=== PATIENT | female | born 1980 | race Caucasian/White ===

== ENCOUNTER 2017-10-09 17:28 | Inpatient (IN) | payer OTHER ==
[2017-10-09] MEDS ORDERED: POTASSIUM CHLORIDE 2 MEQ/ML 60 MEQ, LIDOCAINE HCL 1% MDV 2 ML in SODIUM CHLORIDE 0.9% 1... IV ONE (18:21)
[2017-10-09] MEDS ORDERED: ALBUTEROL NEB SOL 2.5MG/3ML 1 VIAL SOL INH PRN (18:47)
[2017-10-09] MEDS ORDERED: TEMAZEPAM 7.5 MG CAP PO PRN (18:51)
[2017-10-09] MEDS ORDERED: ONDANSETRON HCL 4 MG/2 ML SOL IV PRN ×2 (18:52→20:05)
[2017-10-09] MEDS ORDERED: CEFTRIAXONE 1 GM PDS 1 GM in SODIUM CHLORIDE 0.9% 50 ML 50 ML IV ONE (19:05)
[2017-10-09] MEDS ORDERED: POTASSIUM CHLORIDE 2 MEQ/ML SOL IV ONE (19:10)
[2017-10-09] MEDS ORDERED: LIDOCAINE HCL 1% MPF 30 SOL ONE (19:12)
[2017-10-09] MEDS ORDERED: CEFTRIAXONE 1 GM PDS ONE (19:28)
[2017-10-09] MEDS: RANITIDINE HYDROCHLORIDE 25 MG/ML SOL IV SCH (19:30)
[2017-10-09] MEDS: ACETAMINOPHEN 500 MG 500 MG TAB PO PRN (19:30)
[2017-10-09] MEDS: POTASSIUM CHLORIDE 10 MEQ TER PO SCH ×2 (19:30→21:43)
[2017-10-09] MEDS ORDERED: LORAZEPAM 2 MG/ML SOL IV ONE (19:37)
[2017-10-09] MEDS ORDERED: METOPROLOL TARTRATE 5 MG/5 ML SOL IV ONE ×2 (19:43→19:46)
[2017-10-09 20:01] LABS: HEMATOCRIT 31 % (35-47); HEMOGLOBIN 11.1 gm/dl (12.0-15.5); MEAN CORPUSCULAR HEMOGLOBIN 33.4 pg (27.0-32.0); MEAN CORPUSCULAR HGB CONC 35.3 gm/dl (32.0-36.0); MEAN CORPUSCULAR VOLUME 95 fL (81-99)
[2017-10-09] MEDS ORDERED: SODIUM CHLORIDE 0.9% 500 ML 500 ML IV ONE ×2 (20:01→22:04)
[2017-10-09 20:10] LABS: MAGNESIUM 0.9 mg/dl (1.8-2.4)
[2017-10-09] MEDS ORDERED: MAGNESIUM SULFATE 5 GM/10 ML SOL IV ONE (20:13)
[2017-10-09] MEDS ORDERED: SODIUM CHLORIDE 0.9% 1000ML 1,000 ML IV SCH (20:15)
[2017-10-09 20:24] LABS: BAND NEUTROPHILS % (MANUAL) 2 %; BASOPHILS % (MANUAL) 0 % (0-3); EOSINOPHILS % (MANUAL) 0 % (0-9); LYMPHOCYTES % (MANUAL) 38 % (10-50); MONOCYTES % (MANUAL) 8 % (0-12); NEUTROPHILS % (MANUAL) 52 % (37-80); NORMAL RBCS PRESENT
[2017-10-09] MEDS: THIAMINE 100 MG/ML 100 MG/ML SOL IM SCH (20:50)
[2017-10-09] MEDS: SALMETEROL IH SCH (21:29)
[2017-10-09] MEDS: FLUTICASONE IH SCH (21:29)
[2017-10-09] MEDS: LORAZEPAM 2 MG/ML SOL IV PRN ×2 (21:43→22:35)
[2017-10-09] MEDS: SODIUM CHLORIDE 0.9% FLUSH 10 ML SOL IV PRN (21:44)
[2017-10-10] MEDS: ACETAMINOPHEN 500 MG 500 MG TAB PO PRN (00:25)
[2017-10-10] MEDS: RANITIDINE HYDROCHLORIDE 25 MG/ML SOL IV SCH ×4 (01:28→19:00)
[2017-10-10] MEDS ORDERED: MAGNESIUM SULFATE 5 GM/10 ML SOL IV ONE (01:29)
[2017-10-10] MEDS: LORAZEPAM 2 MG/ML SOL IV PRN ×3 (01:33→22:23)
[2017-10-10] MEDS: SODIUM CHLORIDE 0.9% FLUSH 10 ML SOL IV PRN ×5 (01:43→22:23)
[2017-10-10] MEDS: SODIUM CHLORIDE 0.9% 1000ML 1,000 ML IV SCH ×5 (02:05→22:43)
[2017-10-10] MEDS ORDERED: POTASSIUM CHLORIDE 2 MEQ/ML 60 MEQ, LIDOCAINE HCL 1% MDV 2 ML in SODIUM CHLORIDE 0.9% 1... IV ONE (03:42)
[2017-10-10] MEDS ORDERED: CLONIDINE 0.1 MG TAB PO ONE (03:53)
[2017-10-10] MEDS: APAP/HYDROCODONE 325/5 TAB PO PRN ×3 (04:03→20:35)
[2017-10-10] MEDS ORDERED: POTASSIUM CHLORIDE 2 MEQ/ML SOL IV ONE (04:05)
[2017-10-10] MEDS ORDERED: LIDOCAINE HCL 1% MPF 30 SOL ONE (04:08)
[2017-10-10] MEDS: POTASSIUM CHLORIDE 10 MEQ TER PO SCH ×2 (04:15→06:37)
[2017-10-10 07:20] LABS: BASOPHILS % (AUTO) 2 % (0-3); EOSINOPHILS % (AUTO) 2 % (0-9); HEMATOCRIT 26 % (35-47); HEMOGLOBIN 9.6 gm/dl (12.0-15.5); LYMPHOCYTES % (AUTO) 29.5 % (10-50); MEAN CORPUSCULAR HEMOGLOBIN 34.5 pg (27.0-32.0); MEAN CORPUSCULAR HGB CONC 36.3 gm/dl (32.0-36.0); MEAN CORPUSCULAR VOLUME 95 fL (81-99); MONOCYTES % (AUTO) 5.3 % (0-12); NEUTROPHILS % (AUTO) 61.1 % (37-80)
[2017-10-10 07:28] LABS: BILIRUBIN,TOTAL 0.8 mg/dl (0.2-1.0); CARBON DIOXIDE 25.2 mEq/L (21-32); CREATININE 0.76 mg/dl (0.60-1.00); MAGNESIUM 1.8 mg/dl (1.8-2.4); POTASSIUM 3.1 mMol/L (3.5-5.1); TOTAL PROTEIN 4.3 gm/dl (6.4-8.2)
[2017-10-10] MEDS ORDERED: SODIUM CHLORIDE 0.9% 500 ML 500 ML IV ONE (07:34)
[2017-10-10] MEDS ORDERED: CALCIUM GLUCONATE 100 MG/ML SOL IV ONE (07:38)
[2017-10-10 07:44] LABS: AMPHETAMINES NEGATIVE (NEGATIVE); BARBITUATES NEGATIVE (NEGATIVE); BENZODIAZEPINES POSITIVE (NEGATIVE); CANNABINOL(THC) NEGATIVE (NEGATIVE); COCAINE(COC) NEGATIVE (NEGATIVE); METHADONE NEGATIVE (NEGATIVE); METHAMPHETAMINES NEGATIVE (NEGATIVE); OPIATES(OP13) NEGATIVE (NEGATIVE); OXYCODONE(OXY) NEGATIVE (NEGATIVE); PROPOXYPHENE(PPX) NEGATIVE (NEGATIVE); TRICYCLIC ANTIDEPRESSANTS NEGATIVE (NEGATIVE)
[2017-10-10 07:58] LABS: POIKILOCYTOSIS SLIGHT AMT; STOMATOCYTES PRESENT
[2017-10-10] MEDS: FLUTICASONE IH SCH (08:38)
[2017-10-10] MEDS: SALMETEROL IH SCH (08:38)
[2017-10-10] MEDS ORDERED: PANTOPRAZOLE SODIUM 40 MG/10 ML PDS IV SCH (09:00)
[2017-10-10] MEDS: THIAMINE 100 MG/ML 100 MG/ML SOL IM SCH (09:33)
[2017-10-10] MEDS: MULTIVITAMIN2 1 EA TAB PO SCH (09:33)
[2017-10-10] MEDS ORDERED: CALCIUM GLUCONATE 10% 100 MG/ML SOL IV ONE (10:43)
[2017-10-10] MEDS: FOLIC ACID 1 MG TAB PO SCH (10:57)
[2017-10-10] MEDS ORDERED: CALCIUM GLUCONATE 10% 1,000 MG in SODIUM CHLORIDE 0.9% 100 ML 100 ML IV ONE (11:15)
[2017-10-10 12:52] LABS: ALBUMIN 2.2 gm/dl (3.4-5.0); BILIRUBIN,TOTAL 0.7 mg/dl (0.2-1.0); CARBON DIOXIDE 22.7 mEq/L (21-32); CREATININE 0.82 mg/dl (0.60-1.00); MAGNESIUM 1.6 mg/dl (1.8-2.4); POTASSIUM 3.4 mMol/L (3.5-5.1); TOTAL PROTEIN 4.7 gm/dl (6.4-8.2)
[2017-10-10 12:54] LABS: CALCIUM 6.2 mg/dl (8.5-10.1)
[2017-10-10] MEDS ORDERED: POTASSIUM CHLORIDE 10 MEQ TER PO SCH (13:30)
[2017-10-10] MEDS: CIPROFLOXACIN HCL 500 MG TAB PO SCH ×2 (16:57→20:35)
[2017-10-10] MEDS: FLUTICASONE/SALMETEROL 250/50 1 PUFF DSK INH SCH (20:34)
[2017-10-11] MEDS: RANITIDINE HYDROCHLORIDE 25 MG/ML SOL IV SCH ×4 (00:22→19:32)
[2017-10-11] MEDS: LORAZEPAM 2 MG/ML SOL IV PRN (00:23)
[2017-10-11] MEDS: SODIUM CHLORIDE 0.9% FLUSH 10 ML SOL IV PRN (00:23)
[2017-10-11] MEDS ORDERED: LORAZEPAM 0.5 MG TAB PO PRN ×2 (00:54→08:29)
[2017-10-11] MEDS: SODIUM CHLORIDE 0.9% 1000ML 1,000 ML IV SCH (04:21)
[2017-10-11 07:33] LABS: BASOPHILS % (AUTO) 3 % (0-3); EOSINOPHILS % (AUTO) 3 % (0-9); HEMATOCRIT 26 % (35-47); HEMOGLOBIN 9.1 gm/dl (12.0-15.5); MEAN CORPUSCULAR HEMOGLOBIN 33.6 pg (27.0-32.0); MEAN CORPUSCULAR HGB CONC 34.3 gm/dl (32.0-36.0); MEAN CORPUSCULAR VOLUME 98 fL (81-99); MONOCYTES % (AUTO) 8.2 % (0-12); NEUTROPHILS % (AUTO) 61.2 % (37-80)
[2017-10-11 07:35] LABS: ALBUMIN 1.9 gm/dl (3.4-5.0); BILIRUBIN,TOTAL 0.6 mg/dl (0.2-1.0); CARBON DIOXIDE 20.1 mEq/L (21-32); CREATININE 0.65 mg/dl (0.60-1.00); TOTAL PROTEIN 4.2 gm/dl (6.4-8.2)
[2017-10-11 07:41] LABS: CALCIUM 5.5 mg/dl (8.5-10.1)
[2017-10-11] MEDS: ESOMEPRAZOLE SODIUM 40 MG VIAL IV SCH (08:49)
[2017-10-11] MEDS: MULTIVITAMIN2 1 EA TAB PO SCH (08:49)
[2017-10-11] MEDS: CIPROFLOXACIN HCL 500 MG TAB PO SCH ×2 (08:49→20:47)
[2017-10-11] MEDS: FOLIC ACID 1 MG TAB PO SCH (08:54)
[2017-10-11] MEDS: THIAMINE 100 MG/ML 100 MG/ML SOL IM SCH (08:54)
[2017-10-11] MEDS: FLUTICASONE/SALMETEROL 250/50 1 PUFF DSK INH SCH ×2 (08:55→20:48)
[2017-10-11] MEDS ORDERED: GABAPENTIN 100 MG CAP PO SCH (09:00)
[2017-10-11] MEDS ORDERED: CALCIUM GLUCONATE 10% 100 MG/ML SOL IV ONE ×3 (09:33→20:16)
[2017-10-11] MEDS: POTASSIUM CHLORIDE 10 MEQ TER PO SCH ×3 (09:53→15:20)
[2017-10-11] MEDS: CALCIUM GLUCONATE 100 MG/ML SOL IV SCH ×3 (09:55→20:48)
[2017-10-11] MEDS: ACETAMINOPHEN 500 MG 500 MG TAB PO PRN ×3 (11:02→19:50)
[2017-10-11] MEDS ORDERED: POTASSIUM CHLORIDE 2 MEQ/ML SOL IV ONE (11:06)
[2017-10-11] MEDS: SODIUM CHLORIDE 0.45% 1000 ML 1,000 ML with POTASSIUM CHLORIDE 2 MEQ/ML 20 MEQ IV SCH (11:10)
[2017-10-11] MEDS ORDERED: SODIUM CHLORIDE 0.9% 100 ML 100 ML IV ONE (20:16)
[2017-10-11] MEDS ORDERED: GABAPENTIN 300 MG CAP PO SCH (21:00)
[2017-10-11 22:56] LABS: *FERRITIN 327 ng/ml (10-291); *IRON BINDING CAPACITY 148 mcg/dl (228-410); *IRON SATURATION % 58 % (15-46)
[2017-10-12] MEDS: ACETAMINOPHEN 500 MG 500 MG TAB PO PRN ×4 (01:00→22:44)
[2017-10-12] MEDS: RANITIDINE HYDROCHLORIDE 25 MG/ML SOL IV SCH ×3 (01:01→20:46)
[2017-10-12] MEDS ORDERED: POTASSIUM CHLORIDE 2 MEQ/ML SOL IV ONE (02:09)
[2017-10-12] MEDS: SODIUM CHLORIDE 0.45% 1000 ML 1,000 ML with POTASSIUM CHLORIDE 2 MEQ/ML 20 MEQ IV SCH (02:55)
[2017-10-12 07:09] LABS: BASOPHILS % (AUTO) 2 % (0-3); EOSINOPHILS % (AUTO) 3 % (0-9); HEMATOCRIT 28 % (35-47); HEMOGLOBIN 9.9 gm/dl (12.0-15.5); LYMPHOCYTES % (AUTO) 29.4 % (10-50); MEAN CORPUSCULAR HEMOGLOBIN 34.5 pg (27.0-32.0); MEAN CORPUSCULAR HGB CONC 34.9 gm/dl (32.0-36.0); MONOCYTES % (AUTO) 4.3 % (0-12); NEUTROPHILS % (AUTO) 61.5 % (37-80)
[2017-10-12 07:17] LABS: BILIRUBIN,TOTAL 0.7 mg/dl (0.2-1.0); CARBON DIOXIDE 21.4 mEq/L (21-32); CREATININE 0.61 mg/dl (0.60-1.00); MAGNESIUM 1.2 mg/dl (1.8-2.4); POTASSIUM 3.2 mMol/L (3.5-5.1); TOTAL PROTEIN 4.5 gm/dl (6.4-8.2)
[2017-10-12 07:21] LABS: MEAN CORPUSCULAR VOLUME 99 fL (81-99)
[2017-10-12 07:33] LABS: CALCIUM 5.9 mg/dl (8.5-10.1)
[2017-10-12 07:34] LABS: NORMAL RBCS PRESENT
[2017-10-12] MEDS ORDERED: MAGNESIUM SULFATE 5 GM/10 ML SOL IV ONE (08:04)
[2017-10-12] MEDS ORDERED: GABAPENTIN 300 MG CAP PO SCH (09:15)
[2017-10-12] MEDS: APAP/HYDROCODONE 325/5 TAB PO PRN ×3 (09:28→19:47)
[2017-10-12] MEDS ORDERED: SODIUM CHLORIDE 0.9% 100 ML 100 ML IV ONE ×3 (09:59→19:54)
[2017-10-12] MEDS ORDERED: CALCIUM GLUCONATE 10% 100 MG/ML SOL IV ONE ×3 (09:59→19:52)
[2017-10-12] MEDS: POTASSIUM CHLORIDE 10 MEQ TER PO SCH ×3 (10:04→15:06)
[2017-10-12] MEDS: FLUTICASONE/SALMETEROL 250/50 1 PUFF DSK INH SCH ×2 (10:05→20:19)
[2017-10-12] MEDS: CIPROFLOXACIN HCL 500 MG TAB PO SCH ×2 (10:05→20:21)
[2017-10-12] MEDS: FOLIC ACID 1 MG TAB PO SCH (10:06)
[2017-10-12] MEDS: MULTIVITAMIN2 1 EA TAB PO SCH (10:06)
[2017-10-12] MEDS: CALCIUM GLUCONATE 10% 1,000 MG in SODIUM CHLORIDE 0.9% 100 ML 100 ML IV SCH ×3 (10:20→20:20)
[2017-10-12] MEDS ORDERED: SODIUM CHLORIDE 0.9% IV ONE (11:09)
[2017-10-12] MEDS ORDERED: MAGNESIUM SULFATE IV ONE (11:09)
[2017-10-12] MEDS: GABAPENTIN 300 MG CAP PO SCH ×2 (11:31→20:22)
[2017-10-12] MEDS ORDERED: SODIUM CHLORIDE 0.9% 250 ML 250 ML IV ONE (11:35)
[2017-10-12] MEDS ORDERED: MAGNESIUM SULFATE 5 GM/10 ML SOL ONE (11:35)
[2017-10-12] MEDS: THIAMINE 100 MG TAB PO SCH (11:58)
[2017-10-12] MEDS: ESOMEPRAZOLE SODIUM 40 MG VIAL IV SCH (13:04)
[2017-10-12] MEDS: THIAMINE 100 MG/ML 100 MG/ML SOL IM SCH (13:04)
[2017-10-12] MEDS: PANTOPRAZOLE SODIUM 40 MG ECT PO SCH (13:27)
[2017-10-12] MEDS: TRIAMCINOLONE 0.1% CREAM CRE TOP SCH ×2 (13:28→20:21)
[2017-10-12 18:19] LABS: MAGNESIUM 2.2 mg/dl (1.8-2.4); POTASSIUM 4.6 mMol/L (3.5-5.1)
[2017-10-12] MEDS: ZOLPIDEM TARTRATE 5 MG TAB PO PRN (20:20)
[2017-10-12] MEDS: FAMOTIDINE 20 MG TAB PO SCH (20:22)
[2017-10-12 23:54] LABS: *FOLATE 4.6 ng/ml (2.6-20.0)
[2017-10-13] MEDS: APAP/HYDROCODONE 325/5 TAB PO PRN ×4 (02:00→21:53)
[2017-10-13] MEDS: ACETAMINOPHEN 500 MG 500 MG TAB PO PRN (03:20)
[2017-10-13] MEDS ORDERED: GABAPENTIN 300 MG CAP PO ONE (06:10)
[2017-10-13] MEDS: PANTOPRAZOLE SODIUM 40 MG ECT PO SCH (06:28)
[2017-10-13] MEDS: IBUPROFEN 600 MG TAB PO PRN (06:28)
[2017-10-13 07:22] LABS: CARBON DIOXIDE 20.6 mEq/L (21-32); CREATININE 0.65 mg/dl (0.60-1.00); MAGNESIUM 1.5 mg/dl (1.8-2.4); POTASSIUM 4.1 mMol/L (3.5-5.1)
[2017-10-13 07:23] LABS: BASOPHILS % (AUTO) 2 % (0-3); EOSINOPHILS % (AUTO) 2 % (0-9); HEMATOCRIT 30 % (35-47); HEMOGLOBIN 9.8 gm/dl (12.0-15.5); LYMPHOCYTES % (AUTO) 15.9 % (10-50); MEAN CORPUSCULAR HEMOGLOBIN 33.6 pg (27.0-32.0); MEAN CORPUSCULAR HGB CONC 33.2 gm/dl (32.0-36.0); MONOCYTES % (AUTO) 4.4 % (0-12); NEUTROPHILS % (AUTO) 75.4 % (37-80)
[2017-10-13 07:27] LABS: CALCIUM 6.3 mg/dl (8.5-10.1)
[2017-10-13 07:31] LABS: MEAN CORPUSCULAR VOLUME 101 fL (81-99)
[2017-10-13] MEDS ORDERED: MAGNESIUM SULFATE 5 GM/10 ML SOL IV ONE (08:50)
[2017-10-13] MEDS: MULTIVITAMIN2 1 EA TAB PO SCH (09:11)
[2017-10-13] MEDS: CIPROFLOXACIN HCL 500 MG TAB PO SCH ×2 (09:11→20:42)
[2017-10-13] MEDS: FOLIC ACID 1 MG TAB PO SCH (09:11)
[2017-10-13] MEDS: FLUTICASONE/SALMETEROL 250/50 1 PUFF DSK INH SCH ×2 (09:12→20:41)
[2017-10-13] MEDS: THIAMINE 100 MG TAB PO SCH (09:13)
[2017-10-13] MEDS: TRIAMCINOLONE 0.1% CREAM CRE TOP SCH ×2 (09:13→20:41)
[2017-10-13] MEDS: FAMOTIDINE 20 MG TAB PO SCH ×2 (09:16→20:42)
[2017-10-13] MEDS: SODIUM CHLORIDE 0.9% FLUSH 10 ML SOL IV PRN ×2 (09:17→12:07)
[2017-10-13] MEDS: GABAPENTIN 300 MG CAP PO SCH ×2 (09:18→20:42)
[2017-10-13] MEDS: CALCIUM CARBONATE 500 MG TAB PO SCH ×2 (09:18→20:42)
[2017-10-13] MEDS: CHOLECALCIFEROL 1,000 IU TAB PO SCH (09:19)
[2017-10-13] MEDS: POTASSIUM CHLORIDE 10 MEQ TER PO SCH ×2 (11:15→20:41)
[2017-10-13] MEDS: FUROSEMIDE 20 MG TAB PO SCH ×2 (11:15→15:13)
[2017-10-13] MEDS: HYDROMORPHONE HCL 2 MG/ML SOL IV STA ×4 (14:45→17:13)
[2017-10-13] MEDS ORDERED: DIPHENHYDRAMINE 25 MG CAP PO PRN (18:12)
[2017-10-13] MEDS: LIDOCAINE 4% CREAM TP SCH (20:41)
[2017-10-13] MEDS: ZOLPIDEM TARTRATE 5 MG TAB PO PRN (21:54)
[2017-10-14] MEDS: IBUPROFEN 600 MG TAB PO PRN (03:10)
[2017-10-14] MEDS: APAP/HYDROCODONE 325/5 TAB PO PRN ×3 (03:54→17:59)
[2017-10-14] MEDS: ACETAMINOPHEN 500 MG 500 MG TAB PO PRN ×3 (06:24→20:54)
[2017-10-14] MEDS: PANTOPRAZOLE SODIUM 40 MG ECT PO SCH (06:24)
[2017-10-14 07:24] LABS: BASOPHILS % (AUTO) 2 % (0-3); EOSINOPHILS % (AUTO) 3 % (0-9); HEMATOCRIT 29 % (35-47); HEMOGLOBIN 9.9 gm/dl (12.0-15.5); LYMPHOCYTES % (AUTO) 18.7 % (10-50); MEAN CORPUSCULAR HEMOGLOBIN 34.9 pg (27.0-32.0); MEAN CORPUSCULAR HGB CONC 34.6 gm/dl (32.0-36.0); MONOCYTES % (AUTO) 5.1 % (0-12); NEUTROPHILS % (AUTO) 71.6 % (37-80)
[2017-10-14 07:38] LABS: ALBUMIN 2.1 gm/dl (3.4-5.0); BILIRUBIN,TOTAL 0.7 mg/dl (0.2-1.0); CARBON DIOXIDE 26.8 mEq/L (21-32); CREATININE 0.61 mg/dl (0.60-1.00); MAGNESIUM 1.5 mg/dl (1.8-2.4); POTASSIUM 4.4 mMol/L (3.5-5.1); TOTAL PROTEIN 4.8 gm/dl (6.4-8.2)
[2017-10-14 07:39] LABS: MEAN CORPUSCULAR VOLUME 101 fL (81-99)
[2017-10-14 07:41] LABS: CALCIUM 6.4 mg/dl (8.5-10.1)
[2017-10-14] MEDS ORDERED: ACETAMINOPHEN 325 MG PO PRN (08:32)
[2017-10-14 08:44] LABS: ANISOCYTOSIS SLIGHT AMT; POIKILOCYTOSIS SLIGHT AMT; STOMATOCYTES PRESENT
[2017-10-14] MEDS: SODIUM CHLORIDE 0.9% FLUSH 10 ML SOL IV PRN ×3 (09:47→21:38)
[2017-10-14] MEDS: MULTIVITAMIN2 1 EA TAB PO SCH (09:48)
[2017-10-14] MEDS: FOLIC ACID 1 MG TAB PO SCH (09:48)
[2017-10-14] MEDS: CIPROFLOXACIN HCL 500 MG TAB PO SCH ×2 (09:48→20:55)
[2017-10-14] MEDS: FLUTICASONE/SALMETEROL 250/50 1 PUFF DSK INH SCH ×2 (09:49→20:54)
[2017-10-14] MEDS: THIAMINE 100 MG TAB PO SCH (09:49)
[2017-10-14] MEDS: TRIAMCINOLONE 0.1% CREAM CRE TOP SCH ×2 (09:49→20:55)
[2017-10-14] MEDS: CALCIUM CARBONATE 500 MG TAB PO SCH ×2 (09:50→20:57)
[2017-10-14] MEDS: FAMOTIDINE 20 MG TAB PO SCH ×2 (09:50→20:57)
[2017-10-14] MEDS: POTASSIUM CHLORIDE 10 MEQ TER PO SCH ×2 (09:50→20:55)
[2017-10-14] MEDS: CHOLECALCIFEROL 1,000 IU TAB PO SCH (09:51)
[2017-10-14] MEDS: MAGNESIUM OXIDE 400 MG TAB PO SCH ×3 (09:52→20:58)
[2017-10-14] MEDS: FUROSEMIDE 20mg SOL IV SCH ×2 (09:52→13:57)
[2017-10-14] MEDS: GABAPENTIN 300 MG CAP PO SCH ×3 (09:52→20:56)
[2017-10-14] MEDS: FUROSEMIDE 20 MG TAB PO SCH (10:06)
[2017-10-14] MEDS: LIDOCAINE 4% CREAM TP SCH (20:55)
[2017-10-14] MEDS: ZOLPIDEM TARTRATE 5 MG TAB PO PRN (22:00)
[2017-10-15] MEDS: APAP/HYDROCODONE 325/5 TAB PO PRN ×4 (00:24→20:45)
[2017-10-15] MEDS: PANTOPRAZOLE SODIUM 40 MG ECT PO SCH (06:24)
[2017-10-15 07:37] LABS: CARBON DIOXIDE 28.2 mEq/L (21-32); CHOL/HDL RATIO 2.3 (2.2-4.5); CREATININE 0.61 mg/dl (0.60-1.00); LDL CHOLESTEROL,CALCULATED 55.6 mg/dl (50-130); MAGNESIUM 1.4 mg/dl (1.8-2.4); POTASSIUM 4.3 mMol/L (3.5-5.1)
[2017-10-15] MEDS ORDERED: FUROSEMIDE 40 MG SOL ONE (08:48)
[2017-10-15] MEDS: FOLIC ACID 1 MG TAB PO SCH (08:51)
[2017-10-15] MEDS: FLUTICASONE/SALMETEROL 250/50 1 PUFF DSK INH SCH ×2 (08:52→20:45)
[2017-10-15] MEDS: CIPROFLOXACIN HCL 500 MG TAB PO SCH (08:52)
[2017-10-15] MEDS: THIAMINE 100 MG TAB PO SCH (08:52)
[2017-10-15] MEDS: MULTIVITAMIN2 1 EA TAB PO SCH (08:52)
[2017-10-15] MEDS: TRIAMCINOLONE 0.1% CREAM CRE TOP SCH ×2 (08:52→20:45)
[2017-10-15] MEDS: FAMOTIDINE 20 MG TAB PO SCH ×2 (08:53→20:46)
[2017-10-15] MEDS: CALCIUM CARBONATE 500 MG TAB PO SCH ×2 (08:53→20:46)
[2017-10-15] MEDS: POTASSIUM CHLORIDE 10 MEQ TER PO SCH ×2 (08:53→20:45)
[2017-10-15] MEDS: CHOLECALCIFEROL 1,000 IU TAB PO SCH (08:53)
[2017-10-15] MEDS: FUROSEMIDE 20mg SOL IV SCH ×2 (08:54→14:21)
[2017-10-15] MEDS: GABAPENTIN 300 MG CAP PO SCH ×3 (08:54→20:50)
[2017-10-15] MEDS: MAGNESIUM OXIDE 400 MG TAB PO SCH ×3 (08:54→20:46)
[2017-10-15] MEDS: SODIUM CHLORIDE 0.9% FLUSH 10 ML SOL IV PRN ×3 (08:57→20:56)
[2017-10-15] MEDS: ACETAMINOPHEN 500 MG 500 MG TAB PO PRN (08:58)
[2017-10-15 14:09] LABS: *PROTEIN URINE 24 HR 194 mg/24hr (<300); *PROTEIN URINE RAW 6 mg/dl
[2017-10-15] MEDS: LIDOCAINE 4% CREAM TP SCH (20:44)
[2017-10-15] MEDS: ZOLPIDEM TARTRATE 5 MG TAB PO PRN (22:33)
[2017-10-16] MEDS: APAP/HYDROCODONE 325/5 TAB PO PRN ×3 (05:09→18:36)
[2017-10-16] MEDS: PANTOPRAZOLE SODIUM 40 MG ECT PO SCH (06:12)
[2017-10-16 07:31] LABS: ALBUMIN 2.1 gm/dl (3.4-5.0); BILIRUBIN,TOTAL 0.6 mg/dl (0.2-1.0); CALCIUM 7.4 mg/dl (8.5-10.1); CARBON DIOXIDE 24.8 mEq/L (21-32); CREATININE 0.59 mg/dl (0.60-1.00); POTASSIUM 4.4 mMol/L (3.5-5.1)
[2017-10-16] MEDS ORDERED: HYDROMORPHONE HCL 2 MG/ML SOL IV PRN (08:39)
[2017-10-16] MEDS: ACETAMINOPHEN 500 MG 500 MG TAB PO PRN (09:14)
[2017-10-16] MEDS: FLUTICASONE/SALMETEROL 250/50 1 PUFF DSK INH SCH ×2 (09:15→20:28)
[2017-10-16] MEDS ORDERED: DIPHENHYDRAMINE HCL 12.5 MG/5 ML LIQUID PO PRN (09:15)
[2017-10-16] MEDS: MAGNESIUM OXIDE 400 MG TAB PO SCH ×3 (09:16→20:29)
[2017-10-16] MEDS: POTASSIUM CHLORIDE 10 MEQ TER PO SCH ×2 (09:16→20:29)
[2017-10-16] MEDS: TRIAMCINOLONE 0.1% CREAM CRE TOP SCH ×2 (09:16→20:29)
[2017-10-16] MEDS: FOLIC ACID 1 MG TAB PO SCH (09:16)
[2017-10-16] MEDS: GABAPENTIN 300 MG CAP PO SCH ×3 (09:17→20:30)
[2017-10-16] MEDS: CALCIUM CARBONATE 500 MG TAB PO SCH ×2 (09:17→20:30)
[2017-10-16] MEDS: MULTIVITAMIN2 1 EA TAB PO SCH (09:17)
[2017-10-16] MEDS: FAMOTIDINE 20 MG TAB PO SCH ×2 (09:17→20:30)
[2017-10-16] MEDS: THIAMINE 100 MG TAB PO SCH (09:17)
[2017-10-16] MEDS: CHOLECALCIFEROL 1,000 IU TAB PO SCH (09:18)
[2017-10-16] MEDS: SODIUM CHLORIDE 0.9% FLUSH 10 ML SOL IV PRN (09:31)
[2017-10-16] MEDS: FUROSEMIDE 20mg SOL IV SCH ×2 (09:31→14:53)
[2017-10-16] MEDS: DULOXETINE HCL 30 MG CAPSULE.DR PO SCH (10:29)
[2017-10-16] MEDS ORDERED: TRAZODONE HYDROCHLORIDE 50 MG TAB PO PRN (17:36)
[2017-10-16] MEDS: LIDOCAINE 4% CREAM TP SCH (20:28)
[2017-10-17] MEDS: APAP/HYDROCODONE 325/5 TAB PO PRN ×2 (00:36→07:37)
[2017-10-17] MEDS: PANTOPRAZOLE SODIUM 40 MG ECT PO SCH ×2 (06:19→09:08)
[2017-10-17] MEDS ORDERED: ONDANSETRON 4 MG ODT BU PRN (06:42)
[2017-10-17 07:36] VITALS: BP 112/81; PULSE 88; RESP 10; TEMP 98.6; O2SAT 95
[2017-10-17] MEDS ORDERED: FUROSEMIDE 20 MG TAB PO SCH (09:00)
[2017-10-17] MEDS: FLUTICASONE/SALMETEROL 250/50 1 PUFF DSK INH SCH (09:09)
[2017-10-17] MEDS: MAGNESIUM OXIDE 400 MG TAB PO SCH ×2 (09:10→13:17)
[2017-10-17] MEDS: POTASSIUM CHLORIDE 10 MEQ TER PO SCH (09:10)
[2017-10-17] MEDS: TRIAMCINOLONE 0.1% CREAM CRE TOP SCH (09:10)
[2017-10-17] MEDS: DULOXETINE HCL 30 MG CAPSULE.DR PO SCH (09:10)
[2017-10-17] MEDS: FOLIC ACID 1 MG TAB PO SCH (09:10)
[2017-10-17] MEDS: CHOLECALCIFEROL 1,000 IU TAB PO SCH (09:11)
[2017-10-17] MEDS: MULTIVITAMIN2 1 EA TAB PO SCH (09:11)
[2017-10-17] MEDS: CALCIUM CARBONATE 500 MG TAB PO SCH (09:11)
[2017-10-17] MEDS: THIAMINE 100 MG TAB PO SCH (09:11)
[2017-10-17] MEDS: GABAPENTIN 300 MG CAP PO SCH ×2 (09:14→13:17)
[2017-10-17] MEDS: FAMOTIDINE 20 MG TAB PO SCH (09:14)
== END 2017-10-17 13:55 | disposition home or self-care (01) | DRG 641 ==
LOC: UNDOADMIN 17:58 → ACUTE CARE 17:58
PROVIDERS: ADMIT Family Medicine; ATTEND Family Medicine
PROC: F01H1ZZ Integumentary Integrity Assessment of Integumentary System - Whole Body (ICD-10-PCS; principal; 2017-10-11)
PROC: F01L0FZ Muscle Performance Assessment of Musculoskeletal System - Lower Back / Lower Extremity using Assistive, Adaptive, Supportive or Protective Equipment (ICD-10-PCS; 2017-10-11)
DX: E87.6 Hypokalemia (principal); E83.42 Hypomagnesemia; N39.0 Urinary tract infection, site not specified; R11.2 Nausea with vomiting, unspecified; R00.0 Tachycardia, unspecified; R41.0 Disorientation, unspecified; E83.51 Hypocalcemia; R60.9 Edema, unspecified; R19.7 Diarrhea, unspecified; M79.605 Pain in left leg; M79.604 Pain in right leg; G62.9 Polyneuropathy, unspecified; M21.371 Foot drop, right foot; R26.81 Unsteadiness on feet; Z72.89 Other problems related to lifestyle
CPT/HCPCS: 36415; 70450; 71275; 72148; 80048; 80053; 80061; 80305; 82272; 83735; 83880; 84100; 84132; 84484; 85007; 85018; 85025; 85027; 85651; 93005; 93012; 93306; 99070; J0610; J0696; J1170; J1940; J2060; J2405; J2780; J3475; J3480; Q9967; A6446; A9270-GY; J2001; J3411; J3490

== ENCOUNTER 2017-11-22 10:20 | Inpatient (IN) | payer OTHER ==
[2017-11-22] MEDS ORDERED: POTASSIUM CHLORIDE 2 MEQ/ML 60 MEQ, LIDOCAINE HCL 1% MDV 2 ML in SODIUM CHLORIDE 0.9% 1... IV ONE (10:34)
[2017-11-22] MEDS ORDERED: POTASSIUM CHLORIDE 10 MEQ TER PO SCH (10:45)
[2017-11-22] MEDS ORDERED: POTASSIUM CHLORIDE 2 MEQ/ML SOL IV ONE (11:34)
[2017-11-22] MEDS ORDERED: LIDOCAINE HCL 1% MPF 30 SOL ONE (11:34)
[2017-11-22] MEDS ORDERED: ONDANSETRON HCL 4 MG/2 ML SOL ONE (12:31)
[2017-11-22] MEDS: ONDANSETRON HCL 4 MG/2 ML SOL IV PRN ×3 (12:36→20:21)
[2017-11-22] MEDS ORDERED: GABAPENTIN 300 MG CAP PO SCH (12:45)
[2017-11-22] MEDS ORDERED: SODIUM CHLORIDE 0.9% 1000ML 1,000 ML IV ONE (13:18)
[2017-11-22] MEDS ORDERED: ONDANSETRON HCL 4 MG/2 ML SOL IV PRN ×3 (13:30→23:30)
[2017-11-22] MEDS: APAP/HYDROCODONE 325/5 TAB PO PRN ×3 (13:49→22:10)
[2017-11-22 15:45] LABS: APPEARANCE,URINE Slightly Cloudy; BILIRUBIN,URINE 1+ (NEGATIVE); COLOR,URINE Amber; GLUCOSE, URINE (UA) NEGATIVE (NEGATIVE); KETONES,URINE TRACE (NEGATIVE); LEUKOCYTE ESTERASE ,URINE TRACE (NEGATIVE); NITRATE,URINE POSITIVE (NEGATIVE); OCCULT BLOOD,URINE NEGATIVE (NEG-TRACE)
[2017-11-22 15:56] LABS: ICTOTEST,URINE POSITIVE (NEGATIVE); RBC,URINE 0-2 (0-3AV/HPF)
[2017-11-22 15:57] LABS: BACTERIA 4+ (< 1+); CRYSTALS 0-2 CA OXALATE (0-3 AVE/HPF)
[2017-11-22] MEDS ORDERED: SODIUM CHLORIDE 0.9% 500 ML 500 ML IV ONE (16:43)
[2017-11-22] MEDS ORDERED: CIPROFLOXACIN HCL 500 MG TAB PO SCH (16:45)
[2017-11-22] MEDS ORDERED: LORAZEPAM 2 MG/ML 10ML MDV 2 MG/ML VIAL IV ONE (17:00)
[2017-11-22] MEDS ORDERED: LORAZEPAM 2 MG/ML SOL ONE (17:38)
[2017-11-22 18:20] LABS: BLOOD UREA NITROGEN 3 mg/dl (7-18); CALCIUM 6.9 mg/dl (8.5-10.1); CARBON DIOXIDE 20.4 mEq/L (21-32); CHLORIDE 108 mMol/L (98-107); GLOM FILT RATE 112 mL/min (>60); GLUCOSE 78 mg/dl (74-106); MAGNESIUM 1.2 mg/dl (1.8-2.4); POTASSIUM 3.9 mMol/L (3.5-5.1); SODIUM 142 mMol/L (136-145); TROP I < 0.017 ng/ml (0.000-0.056)
[2017-11-22 18:38] LABS: ALBUMIN 2.8 gm/dl (3.4-5.0); ALKALINE PHOSPHATASE 71 IU/L (46-116); ALT 29 IU/L (14-63); AST 94 IU/L (15-37); BILIRUBIN,TOTAL 1.3 mg/dl (0.2-1.0); TOTAL PROTEIN 5.6 gm/dl (6.4-8.2)
[2017-11-22] MEDS ORDERED: MAGNESIUM SULFATE 1 GM/2 ML 2 GM in SODIUM CHLORIDE 0.9% 100 ML 100 ML IV ONE (18:50)
[2017-11-22] MEDS ORDERED: ALUMINUM/MAGNESIUM 30 ML SUS PO PRN ×2 (19:00→23:30)
[2017-11-22] MEDS ORDERED: ALBUTEROL NEB SOL 2.5MG/3ML 1 VIAL SOL INH PRN (19:03)
[2017-11-22] MEDS ORDERED: MAGNESIUM SULFATE 5 GM/10 ML SOL ONE (20:09)
[2017-11-22] MEDS: CALCIUM CARBONATE 500 MG TAB PO SCH (20:19)
[2017-11-22] MEDS: MULTIVITAMIN2 1 EA TAB PO SCH (20:23)
[2017-11-22] MEDS: FOLIC ACID 1 MG TAB PO SCH (20:23)
[2017-11-22] MEDS: THIAMINE 100 MG TAB PO SCH (20:23)
[2017-11-22] MEDS: GABAPENTIN 300 MG CAP PO SCH (20:27)
[2017-11-22] MEDS: SODIUM CHLORIDE 0.9% FLUSH 10 ML SOL IV SCH (20:34)
[2017-11-22] MEDS ORDERED: Non-Formulary Medication MISC (Fluticasone/Salmeterol 250/50 1 PUFF) IH SCH (21:00)
[2017-11-22] MEDS ORDERED: RANITIDINE HCL 150 MG TAB PO SCH (21:00)
[2017-11-22] MEDS ORDERED: LORAZEPAM 2 MG/ML SOL IV PRN (23:30)
[2017-11-23] MEDS: SODIUM CHLORIDE 0.9% FLUSH 10 ML SOL IV SCH ×7 (00:10→22:49)
[2017-11-23] MEDS: LORAZEPAM 0.5 MG TAB PO PRN ×3 (02:53→13:45)
[2017-11-23] MEDS: FAMOTIDINE 20 MG TAB PO SCH (06:04)
[2017-11-23 07:49] LABS: ALBUMIN 2.4 gm/dl (3.4-5.0); BILIRUBIN,TOTAL 1.6 mg/dl (0.2-1.0); CARBON DIOXIDE 24.8 mEq/L (21-32); CREATININE 0.51 mg/dl (0.60-1.00); MAGNESIUM 1.8 mg/dl (1.8-2.4); POTASSIUM 3.4 mMol/L (3.5-5.1)
[2017-11-23 07:58] LABS: BASOPHILS % (AUTO) 2 % (0-3); EOSINOPHILS % (AUTO) 3 % (0-9); HEMATOCRIT 32 % (35-47); HEMOGLOBIN 10.7 gm/dl (12.0-15.5); LYMPHOCYTES % (AUTO) 31.4 % (10-50); MEAN CORPUSCULAR HEMOGLOBIN 32.4 pg (27.0-32.0); MEAN CORPUSCULAR VOLUME 95 fL (81-99); MONOCYTES % (AUTO) 5.3 % (0-12); NEUTROPHILS % (AUTO) 58.4 % (37-80)
[2017-11-23] MEDS ORDERED: POTASSIUM CHLORIDE 10 MEQ CAPSULE PO SCH (09:00)
[2017-11-23] MEDS ORDERED: MULTIVITAMIN2 1 EA TAB PO SCH ×2 (09:00)
[2017-11-23] MEDS ORDERED: OMEPRAZOLE 40 MG ECC PO SCH (09:00)
[2017-11-23] MEDS ORDERED: FOLIC ACID 1 MG TAB PO SCH (09:00)
[2017-11-23] MEDS ORDERED: THIAMINE 100 MG TAB PO SCH (09:00)
[2017-11-23] MEDS ORDERED: CEFTRIAXONE 1 GM PDS 1 GM in SODIUM CHLORIDE 0.9% 50 ML 50 ML IV ONE (09:00)
[2017-11-23] MEDS ORDERED: CEFTRIAXONE 1 GM PDS ONE (09:07)
[2017-11-23] MEDS ORDERED: SODIUM CHLORIDE 0.9% 50 ML 50 ML IV ONE (09:08)
[2017-11-23] MEDS: ONDANSETRON 4 MG ODT BU PRN (09:19)
[2017-11-23] MEDS: CALCIUM CARBONATE 500 MG TAB PO SCH ×2 (09:22→20:52)
[2017-11-23] MEDS: GABAPENTIN 300 MG CAP PO SCH ×3 (09:22→20:53)
[2017-11-23] MEDS: FOLIC ACID 1 MG TAB PO SCH (09:22)
[2017-11-23] MEDS: APAP/HYDROCODONE 325/5 TAB PO PRN ×2 (09:22→20:59)
[2017-11-23] MEDS: THIAMINE 100 MG TAB PO SCH (09:22)
[2017-11-23] MEDS: MULTIVITAMIN2 1 EA TAB PO SCH (09:22)
[2017-11-23] MEDS: SODIUM CHLORIDE 0.9% 1000ML 1,000 ML IV SCH (09:27)
[2017-11-23] MEDS: ETHINYL ESTRADIOL PO SCH (10:28)
[2017-11-23] MEDS: NORETHINDRONE PO SCH (10:28)
[2017-11-23] MEDS: [UNRECOGNIZED DRUG - OTHER] PO SCH (10:28)
[2017-11-23] MEDS: FLUTICASONE/SALMETEROL 250/50 1 PUFF DSK INH SCH ×2 (10:29→21:11)
[2017-11-23] MEDS: [UNRECOGNIZED DRUG - OTHER] PO SCH ×4 (10:29→21:11)
[2017-11-23] MEDS: MAGNESIUM OXIDE 400 MG TAB PO SCH ×2 (10:37→20:52)
[2017-11-23] MEDS: PANTOPRAZOLE SODIUM 40 MG ECT PO SCH (10:40)
[2017-11-23 17:29] LABS: CALCIUM 7.1 mg/dl (8.5-10.1); CARBON DIOXIDE 25.1 mEq/L (21-32); CREATININE 0.72 mg/dl (0.60-1.00); MAGNESIUM 1.6 mg/dl (1.8-2.4); POTASSIUM 3.1 mMol/L (3.5-5.1)
[2017-11-23] MEDS ORDERED: POTASSIUM CHLORIDE 10 MEQ TER PO SCH (18:30)
[2017-11-23] MEDS ORDERED: POTASSIUM CHLORIDE 2 MEQ/ML SOL IV SCH (18:30)
[2017-11-24] MEDS: SODIUM CHLORIDE 0.9% 1000ML 1,000 ML IV SCH (00:57)
[2017-11-24] MEDS: APAP/HYDROCODONE 325/5 TAB PO PRN ×2 (01:05→06:04)
[2017-11-24] MEDS: FAMOTIDINE 20 MG TAB PO SCH (06:29)
[2017-11-24 07:28] LABS: CALCIUM 6.8 mg/dl (8.5-10.1); CARBON DIOXIDE 23.2 mEq/L (21-32); CREATININE 0.54 mg/dl (0.60-1.00); MAGNESIUM 1.6 mg/dl (1.8-2.4); POTASSIUM 3.8 mMol/L (3.5-5.1)
[2017-11-24] MEDS: SODIUM CHLORIDE 0.9% FLUSH 10 ML SOL IV SCH ×3 (07:34→23:30)
[2017-11-24] MEDS: ONDANSETRON 4 MG ODT BU PRN (08:39)
[2017-11-24] MEDS: THIAMINE 100 MG TAB PO SCH (09:40)
[2017-11-24] MEDS: PANTOPRAZOLE SODIUM 40 MG ECT PO SCH (09:40)
[2017-11-24] MEDS: [UNRECOGNIZED DRUG - OTHER] PO SCH ×4 (09:41→21:34)
[2017-11-24] MEDS: CALCIUM CARBONATE 500 MG TAB PO SCH ×2 (09:41→21:37)
[2017-11-24] MEDS: ETHINYL ESTRADIOL PO SCH (09:42)
[2017-11-24] MEDS: FOLIC ACID 1 MG TAB PO SCH (09:42)
[2017-11-24] MEDS: NORETHINDRONE PO SCH (09:42)
[2017-11-24] MEDS: MAGNESIUM OXIDE 400 MG TAB PO SCH ×2 (09:42→21:35)
[2017-11-24] MEDS: [UNRECOGNIZED DRUG - OTHER] PO SCH (09:42)
[2017-11-24] MEDS: MULTIVITAMIN2 1 EA TAB PO SCH (09:43)
[2017-11-24] MEDS: FLUTICASONE/SALMETEROL 250/50 1 PUFF DSK INH SCH ×2 (09:44→21:33)
[2017-11-24] MEDS: GABAPENTIN 300 MG CAP PO SCH ×4 (10:29→21:33)
[2017-11-24] MEDS: POTASSIUM CHLORIDE 10 MEQ TER PO SCH ×2 (10:52→21:34)
[2017-11-24] MEDS: CIPROFLOXACIN HCL 500 MG TAB PO SCH ×2 (10:52→21:32)
[2017-11-24] MEDS: TIZANIDINE 4 MG PO PRN ×3 (10:53→23:19)
[2017-11-24] MEDS ORDERED: LIDOCAINE 5% PATCH 1 PATCH TDM TOP SCH (17:00)
[2017-11-24 19:02] VITALS: O2SAT 99
[2017-11-24] MEDS: NAPROXEN 500 MG TAB PO PRN (19:03)
[2017-11-24] MEDS ORDERED: AMITRIPTYLINE 25 MG TAB PO SCH (21:00)
[2017-11-24] MEDS ORDERED: TRAZODONE HYDROCHLORIDE 50 MG TAB PO PRN (22:09)
[2017-11-25] MEDS: TIZANIDINE 4 MG PO PRN ×2 (04:14→12:44)
[2017-11-25] MEDS: FAMOTIDINE 20 MG TAB PO SCH (06:41)
[2017-11-25 07:59] LABS: ALBUMIN 2.4 gm/dl (3.4-5.0); BILIRUBIN,TOTAL 0.5 mg/dl (0.2-1.0); CALCIUM 7.7 mg/dl (8.5-10.1); CARBON DIOXIDE 27.6 mEq/L (21-32); CREATININE 0.62 mg/dl (0.60-1.00); MAGNESIUM 1.8 mg/dl (1.8-2.4); POTASSIUM 4.2 mMol/L (3.5-5.1)
[2017-11-25 08:04] LABS: HEMATOCRIT 29 % (35-47); HEMOGLOBIN 10.2 gm/dl (12.0-15.5); MEAN CORPUSCULAR HGB CONC 34.8 gm/dl (32.0-36.0); MEAN CORPUSCULAR VOLUME 98 fL (81-99)
[2017-11-25 08:38] LABS: BAND NEUTROPHILS % (MANUAL) 0 %; BASOPHILS % (MANUAL) 0 % (0-3); EOSINOPHILS % (MANUAL) 2 % (0-9); LYMPHOCYTES % (MANUAL) 34 % (10-50); MONOCYTES % (MANUAL) 7 % (0-12); NEUTROPHILS % (MANUAL) 57 % (37-80); NORMAL RBCS NORMAL RBCS
[2017-11-25 08:41] VITALS: RESP 18
[2017-11-25] MEDS: SODIUM CHLORIDE 0.9% FLUSH 10 ML SOL IV SCH (08:42)
[2017-11-25] MEDS: THIAMINE 100 MG TAB PO SCH (08:43)
[2017-11-25] MEDS: CALCIUM CARBONATE 500 MG TAB PO SCH (08:44)
[2017-11-25] MEDS: FOLIC ACID 1 MG TAB PO SCH (08:45)
[2017-11-25] MEDS: MULTIVITAMIN2 1 EA TAB PO SCH (08:46)
[2017-11-25] MEDS: [UNRECOGNIZED DRUG - OTHER] PO SCH (08:46)
[2017-11-25] MEDS: NORETHINDRONE PO SCH (08:46)
[2017-11-25] MEDS: FLUTICASONE/SALMETEROL 250/50 1 PUFF DSK INH SCH (08:46)
[2017-11-25] MEDS: ETHINYL ESTRADIOL PO SCH (08:46)
[2017-11-25] MEDS: GABAPENTIN 300 MG CAP PO SCH ×2 (08:47→14:11)
[2017-11-25] MEDS: PANTOPRAZOLE SODIUM 40 MG ECT PO SCH (08:47)
[2017-11-25] MEDS: POTASSIUM CHLORIDE 10 MEQ TER PO SCH (08:48)
[2017-11-25] MEDS: CIPROFLOXACIN HCL 500 MG TAB PO SCH (08:48)
[2017-11-25] MEDS: [UNRECOGNIZED DRUG - OTHER] PO SCH ×2 (08:49→12:44)
[2017-11-25] MEDS ORDERED: LIDOCAINE 5% PATCH 1 PATCH TDM TOP SCH (09:00)
[2017-11-25] MEDS: MAGNESIUM OXIDE 400 MG TAB PO SCH (09:00)
[2017-11-25] MEDS: NAPROXEN 500 MG TAB PO PRN (09:00)
[2017-11-25 09:20] VITALS: BP 144/99; PULSE 75; TEMP 98.1
== END 2017-11-25 15:40 | disposition home or self-care (01) | DRG 641 ==
LOC: INFUSION 10:20 → ACUTE CARE 18:49
PROVIDERS: ADMIT Family Medicine; ATTEND Family Medicine
PROC: F01ZBZZ Bed Mobility Assessment (ICD-10-PCS; principal; 2017-11-23)
PROC: F01ZCZZ Transfer Assessment (ICD-10-PCS; 2017-11-23)
DX: E87.6 Hypokalemia (principal); N39.0 Urinary tract infection, site not specified; E46 Unspecified protein-calorie malnutrition; R45.1 Restlessness and agitation; M21.371 Foot drop, right foot; E83.51 Hypocalcemia; E83.42 Hypomagnesemia; R00.0 Tachycardia, unspecified; Z72.89 Other problems related to lifestyle; G62.9 Polyneuropathy, unspecified; M54.5 Low back pain
CPT/HCPCS: 36415; 80048; 80053; 81001; 83735; 84100; 84484; 85007; 85025; 85027; 87077; 87088; 87186; 93005; 93012; 93306; 96365; 96366; 99070; J0696; J2060; J2405; J3475; J3480; J7613; A6232; A9270-GY; J2001

== ENCOUNTER 2018-01-23 09:21 | Day surgery (SDC) | payer OTHER ==
[2018-01-23 10:03] VITALS: O2SAT 99
[2018-01-23] MEDS ORDERED: DIAZEPAM 5 MG TAB ONE (10:17)
[2018-01-23] MEDS ORDERED: BUPIVACAINE HCL 0.5% MPF 10 ML SOL ONE (10:48)
[2018-01-23] MEDS: DEXAMETHASONE SOD PHOS PF 10 MG/ML SOL IJ ONE ×2 (10:52→11:01)
[2018-01-23 11:22] VITALS: BP 109/78; PULSE 87; RESP 16; TEMP 98.4
== END 2018-01-23 11:28 | disposition home or self-care (01) | DRG 552 ==
LOC: SURG 09:21
PROVIDERS: ATTEND Nurse Anesthetist, Certified Registered
DX: M51.17 Intervertebral disc disorders with radiculopathy, lumbosacral region (principal)
CPT/HCPCS: A9270-GY; J1100

== ENCOUNTER 2018-01-26 18:00 | Emergency (ER) | payer OTHER ==
[2018-01-26 18:04] VITALS: BP 124/85; PULSE 122; RESP 18; TEMP 98.2; O2SAT 94
[2018-01-26 18:35] LABS: BASOPHILS % (AUTO) 3 % (0-3); EOSINOPHILS % (AUTO) 1 % (0-9); HEMATOCRIT 36 % (35-47); HEMOGLOBIN 11.5 gm/dl (12.0-15.5); LYMPHOCYTES % (AUTO) 36.1 % (10-50); MEAN CORPUSCULAR HGB CONC 32.3 gm/dl (32.0-36.0); MONOCYTES % (AUTO) 13.9 % (0-12); NEUTROPHILS % (AUTO) 45.9 % (37-80)
[2018-01-26 18:37] LABS: MEAN CORPUSCULAR VOLUME 99 fL (81-99)
[2018-01-26] MEDS ORDERED: SOLUMEDROL 125 MG/2 ML 125 MG/2 ML PDS IM ONE (18:44)
[2018-01-26] MEDS ORDERED: KETOROLAC TROMETHAMINE 30 MG/ML SOL IM ONE (18:44)
[2018-01-26] MEDS ORDERED: KETOROLAC TROMETHAMINE 30 MG/ML SOL ONE (18:45)
[2018-01-26] MEDS ORDERED: SOLUMEDROL 125 MG/2 ML 125 MG/2 ML PDS ONE (18:46)
[2018-01-26 18:48] LABS: ALBUMIN 2.9 gm/dl (3.4-5.0); BILIRUBIN,TOTAL 0.4 mg/dl (0.2-1.0); CALCIUM 7.4 mg/dl (8.5-10.1); CARBON DIOXIDE 30.3 mEq/L (21-32); CREATININE 0.65 mg/dl (0.60-1.00); POTASSIUM 3.7 mMol/L (3.5-5.1); TOTAL PROTEIN 6.2 gm/dl (6.4-8.2)
[2018-01-26 18:50] LABS: ALCOHOL 0.295 gm/dl (0.000-0.08)
== END 2018-01-26 19:27 | disposition home or self-care (01) | DRG 93 ==
LOC: ED 18:00
DX: G89.29 Other chronic pain (principal); M54.42 Lumbago with sciatica, left side; F10.10 Alcohol abuse, uncomplicated; Y90.1 Blood alcohol level of 20-39 mg/100 ml
CPT/HCPCS: 36415; 80053; 80307; 85025; 96372; 99283; J1885; J2930

== ENCOUNTER 2018-06-04 15:24 | Emergency (ER) | payer SELFPAY ==
[2018-06-04] MEDS ORDERED: SODIUM CHLORIDE 0.9% FLUSH 10 ML SOL IV PRN (15:35)
[2018-06-04] MEDS ORDERED: ONDANSETRON HCL 4 MG/2 ML SOL IV ONE (15:35)
[2018-06-04] MEDS ORDERED: SODIUM CHLORIDE 0.9% 1000ML 1,000 ML IV SCH (15:50)
[2018-06-04 16:04] LABS: BASOPHILS % (AUTO) 1 % (0-3); EOSINOPHILS % (AUTO) 1 % (0-9); HEMATOCRIT 44 % (35-47); HEMOGLOBIN 14.3 gm/dl (12.0-15.5); LYMPHOCYTES % (AUTO) 33.1 % (10-50); MEAN CORPUSCULAR HGB CONC 32.6 gm/dl (32.0-36.0); MEAN CORPUSCULAR VOLUME 95 fL (81-99); NEUTROPHILS % (AUTO) 59.7 % (37-80)
[2018-06-04] MEDS ORDERED: ONDANSETRON HCL 4 MG/2 ML SOL ONE (16:14)
[2018-06-04 16:31] VITALS: RESP 18
[2018-06-04 16:43] LABS: APPEARANCE,URINE Clear; BILIRUBIN,URINE NEGATIVE (NEGATIVE); COLOR,URINE Yellow; GLUCOSE, URINE (UA) NEGATIVE (NEGATIVE); KETONES,URINE TRACE (NEGATIVE); LEUKOCYTE ESTERASE ,URINE NEGATIVE (NEGATIVE); NITRATE,URINE NEGATIVE (NEGATIVE); OCCULT BLOOD,URINE NEGATIVE (NEG-TRACE); UROBILINOGEN,URINE 0.2 (0.2-1.0 EU)
[2018-06-04 16:49] LABS: INR 1.01 (0.86-1.12)
[2018-06-04 17:06] VITALS: BP 106/73; PULSE 73; TEMP 98.1; O2SAT 97
[2018-06-04 17:10] LABS: ALBUMIN 3.4 gm/dl (3.4-5.0); BILIRUBIN,DIRECT 0.1 mg/dl (0.0-0.2); BILIRUBIN,TOTAL 0.2 mg/dl (0.2-1.0); CALCIUM 7.7 mg/dl (8.5-10.1); CARBON DIOXIDE 23.8 mEq/L (21-32); CREATININE 0.67 mg/dl (0.60-1.00); MAGNESIUM 1.8 mg/dl (1.8-2.4); POTASSIUM 3.8 mMol/L (3.5-5.1); THYROID STIMULATING HORMONE 1.442 uIU/ml (0.358-3.740); TOTAL PROTEIN 6.6 gm/dl (6.4-8.2)
[2018-06-04 17:17] LABS: ALCOHOL 0.317 gm/dl (0.000-0.08)
[2018-06-04 17:30] LABS: AMPHETAMINES NEGATIVE (NEGATIVE); BARBITUATES NEGATIVE (NEGATIVE); BENZODIAZEPINES POSITIVE (NEGATIVE); CANNABINOL(THC) NEGATIVE (NEGATIVE); COCAINE(COC) NEGATIVE (NEGATIVE); METHADONE NEGATIVE (NEGATIVE); METHAMPHETAMINES NEGATIVE (NEGATIVE); OPIATES(OPI) NEGATIVE (NEGATIVE); OXYCODONE(OXY) NEGATIVE (NEGATIVE); PROPOXYPHENE(PPX) NEGATIVE (NEGATIVE); TRICYCLIC ANTIDEPRESSANTS NEGATIVE (NEGATIVE)
[2018-06-04 17:37] LABS: BACTERIA TRACE (< 1+); CRYSTALS 1-4 CALCIUM OXALATE (0-3 AVE/HPF); EPITHELIAL CELLS 0-2 (SQUAMOUS); RBC,URINE 0-1 (0-3AV/HPF)
== END 2018-06-04 17:00 | disposition left against medical advice (07) | DRG 897 ==
LOC: ED 15:24
DX: F10.229 Alcohol dependence with intoxication, unspecified (principal); Y90.8 Blood alcohol level of 240 mg/100 ml or more; F41.9 Anxiety disorder, unspecified; S00.81XA Abrasion of other part of head, initial encounter; W19.XXXA Unspecified fall, initial encounter; Z53.21 Procedure and treatment not carried out due to patient leaving prior to being seen by health care provider
CPT/HCPCS: 36415; 80048; 80076; 80305; 80307; 81001; 82140; 83735; 84443; 85025; 85610; 96365; 99282; J2405

== ENCOUNTER 2018-06-18 04:54 | Emergency (ER) | payer SELFPAY ==
[2018-06-18 05:04] VITALS: RESP 16; TEMP 96
[2018-06-18] MEDS ORDERED: KETOROLAC TROMETHAMINE 30 MG/ML SOL IM ONE (06:00)
[2018-06-18] MEDS ORDERED: KETOROLAC TROMETHAMINE 30 MG/ML SOL ONE (06:02)
[2018-06-18 06:36] VITALS: BP 103/59; PULSE 91; O2SAT 93
[2018-06-18 06:36] LABS: BASOPHILS % (AUTO) 2 % (0-3); EOSINOPHILS % (AUTO) 2 % (0-9); HEMATOCRIT 38 % (35-47); HEMOGLOBIN 12.8 gm/dl (12.0-15.5); LYMPHOCYTES % (AUTO) 32.4 % (10-50); MEAN CORPUSCULAR HEMOGLOBIN 32.1 pg (27.0-32.0); MEAN CORPUSCULAR HGB CONC 33.4 gm/dl (32.0-36.0); MEAN CORPUSCULAR VOLUME 96 fL (81-99); MONOCYTES % (AUTO) 7.8 % (0-12); NEUTROPHILS % (AUTO) 55.2 % (37-80)
[2018-06-18 06:45] LABS: ALBUMIN 3.6 gm/dl (3.4-5.0); BILIRUBIN,TOTAL 0.4 mg/dl (0.2-1.0); CARBON DIOXIDE 23.6 mEq/L (21-32); CREATININE 0.61 mg/dl (0.60-1.00); POTASSIUM 4.1 mMol/L (3.5-5.1); TOTAL PROTEIN 6.9 gm/dl (6.4-8.2)
[2018-06-18 06:51] LABS: ALCOHOL 0.294 gm/dl (0.000-0.08)
== END 2018-06-18 07:10 | disposition home or self-care (01) | DRG 560 ==
LOC: ED 04:54
DX: S82.831S Other fracture of upper and lower end of right fibula, sequela (principal); F10.29 Alcohol dependence with unspecified alcohol-induced disorder; Z91.19 Patient's noncompliance with other medical treatment and regimen; W00.0XXD Fall on same level due to ice and snow, subsequent encounter; Y90.8 Blood alcohol level of 240 mg/100 ml or more
CPT/HCPCS: 29515; 36415; 73590; 80053; 80307; 85025; 96372; 99284; J1885

== ENCOUNTER 2018-06-28 11:45 | Outpatient (CLI) | payer MEDICAID ==
[2018-06-18 06:36] VITALS: O2SAT 93
== END 2018-06-28 11:46 | disposition home or self-care (01) | DRG 556 ==
LOC: CONVCARE 11:45
PROVIDERS: ATTEND Orthopaedic Surgery
DX: M25.571 Pain in right ankle and joints of right foot (principal); S82.491D Other fracture of shaft of right fibula, subsequent encounter for closed fracture with routine healing
CPT/HCPCS: 73610

== ENCOUNTER 2018-07-12 12:30 | Inpatient (IN) | payer MEDICAID ==
[2018-07-12] MEDS ORDERED: ONDANSETRON 4 MG ODT PO PRN (14:17)
[2018-07-12] MEDS ORDERED: LORAZEPAM 0.5 MG TAB PO PRN (14:18)
[2018-07-12] MEDS ORDERED: ONDANSETRON HCL 4 MG/2 ML SOL IV PRN (14:18)
[2018-07-12] MEDS ORDERED: ALUMINUM/MAGNESIUM 30 ML SUS PO PRN (14:18)
[2018-07-12] MEDS ORDERED: LORAZEPAM 2 MG/ML SOL IV PRN (14:18)
[2018-07-12] MEDS ORDERED: SODIUM CHLORIDE 0.9% FLUSH 10 ML SOL IV SCH (14:30)
[2018-07-12 14:40] LABS: HEMATOCRIT 45 % (35-47); HEMOGLOBIN 14.3 gm/dl (12.0-15.5); MEAN CORPUSCULAR HEMOGLOBIN 31.9 pg (27.0-32.0)
[2018-07-12 14:49] VITALS: BP 109/76; PULSE 130; RESP 16; TEMP 98.2; O2SAT 96
[2018-07-12 15:01] LABS: MEAN CORPUSCULAR VOLUME 100 fL (81-99)
[2018-07-12 15:02] LABS: BAND NEUTROPHILS % (MANUAL) 1 %; EOSINOPHILS % (MANUAL) 1 % (0-9); LYMPHOCYTES % (MANUAL) 33 % (10-50); MONOCYTES % (MANUAL) 9 % (0-12); NEUTROPHILS % (MANUAL) 53 % (37-80)
[2018-07-12 15:03] LABS: BASOPHILS % (MANUAL) 3 % (0-3)
[2018-07-12 15:12] LABS: ALBUMIN 3.8 gm/dl (3.4-5.0); BILIRUBIN,DIRECT 0.1 mg/dl (0.0-0.2); BILIRUBIN,TOTAL 0.2 mg/dl (0.2-1.0); CALCIUM 8.3 mg/dl (8.5-10.1); CREATININE 0.75 mg/dl (0.60-1.00); MAGNESIUM 2.1 mg/dl (1.8-2.4); POTASSIUM 3.4 mMol/L (3.5-5.1); THYROID STIMULATING HORMONE 0.342 uIU/ml (0.358-3.740); TOTAL PROTEIN 7.3 gm/dl (6.4-8.2)
[2018-07-12 15:26] LABS: ALCOHOL 0.404 gm/dl (0.000-0.08)
[2018-07-12] MEDS ORDERED: MAGNESIUM OXIDE 400 MG TAB PO SCH (21:00)
[2018-07-13] MEDS ORDERED: MULTIVITAMIN2 1 EA TAB PO SCH ×2 (09:00)
[2018-07-13] MEDS ORDERED: [UNRECOGNIZED DRUG - OTHER] PO SCH (09:00)
[2018-07-13] MEDS ORDERED: PANTOPRAZOLE SODIUM 40 MG ECT PO PRN (09:00)
[2018-07-13] MEDS ORDERED: ETHINYL ESTRADIOL PO SCH (09:00)
[2018-07-13] MEDS ORDERED: FOLIC ACID 1 MG TAB PO SCH ×2 (09:00)
[2018-07-13] MEDS ORDERED: NORETHINDRONE PO SCH (09:00)
[2018-07-13] MEDS ORDERED: THIAMINE 100 MG TAB PO SCH ×2 (09:00)
== END 2018-07-12 15:05 | disposition left against medical advice (07) | DRG 561 ==
LOC: EDSTATUS 12:30 → CONVCARE 13:27 → ACUTE CARE 13:37 → UNDOADMIN 13:37 → UNDODISIN 15:05
PROVIDERS: ADMIT Family Medicine; ATTEND Family Medicine
DX: S82.831D Other fracture of upper and lower end of right fibula, subsequent encounter for closed fracture with routine healing (principal); Z53.21 Procedure and treatment not carried out due to patient leaving prior to being seen by health care provider
CPT/HCPCS: 36415; 73610; 80048; 80076; 80307; 82140; 83735; 84443; 85007; 85027; A9270-GY

== ENCOUNTER 2018-07-12 15:20 | Inpatient (IN) | payer MEDICAID ==
[2018-07-12] MEDS ORDERED: ONDANSETRON HCL 4 MG/2 ML SOL IV PRN (16:51)
[2018-07-12] MEDS ORDERED: ALUMINUM/MAGNESIUM 30 ML SUS PO PRN (16:52)
[2018-07-12] MEDS ORDERED: LORAZEPAM 2 MG/ML SOL IV PRN ×2 (16:52→18:56)
[2018-07-12] MEDS ORDERED: LORAZEPAM 0.5 MG TAB PO PRN (16:52)
[2018-07-12] MEDS ORDERED: OMEPRAZOLE 40 MG ECC PO PRN (17:40)
[2018-07-12] MEDS ORDERED: ONDANSETRON 4 MG ODT PO PRN (17:40)
[2018-07-12] MEDS ORDERED: ALBUTEROL NEB SOL 2.5MG/3ML 1 VIAL SOL INH PRN (17:40)
[2018-07-12] MEDS: SODIUM CHLORIDE 0.9% FLUSH 10 ML SOL IV SCH (17:47)
[2018-07-12] MEDS: NAPROXEN 500 MG TAB PO PRN (19:01)
[2018-07-12] MEDS ORDERED: FAMOTIDINE 20 MG TAB ONE (19:06)
[2018-07-12] MEDS: MAGNESIUM OXIDE 400 MG TAB PO SCH (20:32)
[2018-07-12] MEDS: CALCIUM CARBONATE 500 MG TAB PO SCH (20:33)
[2018-07-12] MEDS: FAMOTIDINE 20 MG TAB PO SCH (20:34)
[2018-07-12] MEDS: LORAZEPAM 0.5 MG TAB PO PRN (20:45)
[2018-07-12] MEDS ORDERED: MAGNESIUM OXIDE 400 MG TAB PO SCH (21:00)
[2018-07-12] MEDS ORDERED: RANITIDINE HCL 150 MG TAB PO SCH (21:00)
[2018-07-13] MEDS: SODIUM CHLORIDE 0.9% FLUSH 10 ML SOL IV SCH ×3 (00:39→19:00)
[2018-07-13] MEDS: SODIUM CHLORIDE 0.9% 1000ML 1,000 ML IV SCH ×3 (00:39→19:23)
[2018-07-13] MEDS: LORAZEPAM 0.5 MG TAB PO PRN ×7 (01:02→21:45)
[2018-07-13] MEDS: NAPROXEN 500 MG TAB PO PRN ×2 (06:43→09:50)
[2018-07-13 07:03] LABS: AMPHETAMINES NEGATIVE (NEGATIVE); BARBITUATES NEGATIVE (NEGATIVE); BENZODIAZEPINES POSITIVE (NEGATIVE); CANNABINOL(THC) POSITIVE (NEGATIVE); COCAINE(COC) NEGATIVE (NEGATIVE); METHADONE NEGATIVE (NEGATIVE); METHAMPHETAMINES NEGATIVE (NEGATIVE); OPIATES(OPI) NEGATIVE (NEGATIVE); OXYCODONE(OXY) NEGATIVE (NEGATIVE); PROPOXYPHENE(PPX) NEGATIVE (NEGATIVE); TRICYCLIC ANTIDEPRESSANTS NEGATIVE (NEGATIVE)
[2018-07-13 07:27] LABS: BASOPHILS % (AUTO) 6 % (0-3); EOSINOPHILS % (AUTO) 1 % (0-9); HEMATOCRIT 36 % (35-47); HEMOGLOBIN 11.8 gm/dl (12.0-15.5); LYMPHOCYTES % (AUTO) 30.3 % (10-50); MEAN CORPUSCULAR HEMOGLOBIN 32.3 pg (27.0-32.0); MEAN CORPUSCULAR HGB CONC 32.6 gm/dl (32.0-36.0); MONOCYTES % (AUTO) 14.7 % (0-12); NEUTROPHILS % (AUTO) 48.1 % (37-80)
[2018-07-13 07:28] LABS: MEAN CORPUSCULAR VOLUME 99 fL (81-99)
[2018-07-13] MEDS: ONDANSETRON 4 MG ODT BU PRN ×3 (07:28→21:52)
[2018-07-13 07:29] LABS: CARBON DIOXIDE 25.2 mEq/L (21-32); CREATININE 0.52 mg/dl (0.60-1.00); POTASSIUM 3.3 mMol/L (3.5-5.1)
[2018-07-13] MEDS ORDERED: THIAMINE 100 MG TAB PO SCH (09:00)
[2018-07-13] MEDS: FOLIC ACID 1 MG TAB PO SCH (09:36)
[2018-07-13] MEDS: CALCIUM CARBONATE 500 MG TAB PO SCH ×2 (09:36→21:47)
[2018-07-13] MEDS: MAGNESIUM OXIDE 400 MG TAB PO SCH ×3 (09:36→21:46)
[2018-07-13] MEDS: THIAMINE 100 MG TAB PO SCH (09:36)
[2018-07-13] MEDS: MULTIVITAMIN2 1 EA TAB PO SCH (09:36)
[2018-07-13] MEDS: NICOTINE 21 MG PATCH TD PRN (09:42)
[2018-07-13] MEDS ORDERED: PANTOPRAZOLE SODIUM 40 MG ECT PO PRN (09:45)
[2018-07-13] MEDS: GABAPENTIN 300 MG CAP PO SCH ×3 (09:49→21:46)
[2018-07-13] MEDS: POTASSIUM CHLORIDE 10 MEQ TER PO SCH ×2 (11:24→21:45)
[2018-07-13] MEDS: FLUTICASONE PROPIONATE SPR NAS SCH (13:29)
[2018-07-13] MEDS: NORETHINDRONE PO SCH ×2 (16:44→17:00)
[2018-07-13] MEDS: ETHINYL ESTRADIOL PO SCH ×2 (16:44→17:00)
[2018-07-13] MEDS: [UNRECOGNIZED DRUG - OTHER] PO SCH ×2 (16:44→17:00)
[2018-07-13] MEDS ORDERED: POTASSIUM CHLORIDE 10 MEQ CAPSULE PO SCH (17:45)
[2018-07-13] MEDS: FAMOTIDINE 20 MG TAB PO SCH (21:47)
[2018-07-14] MEDS: SODIUM CHLORIDE 0.9% FLUSH 10 ML SOL IV SCH ×2 (02:05→09:11)
[2018-07-14 03:07] VITALS: O2SAT 99
[2018-07-14] MEDS: SODIUM CHLORIDE 0.9% 1000ML 1,000 ML IV SCH (03:20)
[2018-07-14] MEDS: NAPROXEN 500 MG TAB PO PRN (05:47)
[2018-07-14 06:42] VITALS: RESP 16
[2018-07-14] MEDS: FOLIC ACID 1 MG TAB PO SCH (08:37)
[2018-07-14] MEDS: POTASSIUM CHLORIDE 10 MEQ TER PO SCH (08:38)
[2018-07-14] MEDS: MAGNESIUM OXIDE 400 MG TAB PO SCH (08:39)
[2018-07-14] MEDS: GABAPENTIN 300 MG CAP PO SCH (08:39)
[2018-07-14] MEDS: CALCIUM CARBONATE 500 MG TAB PO SCH (08:40)
[2018-07-14] MEDS: MULTIVITAMIN2 1 EA TAB PO SCH (08:41)
[2018-07-14] MEDS: THIAMINE 100 MG TAB PO SCH (08:56)
[2018-07-14] MEDS: LORAZEPAM 0.5 MG TAB PO PRN (08:56)
[2018-07-14 09:10] VITALS: BP 144/94; PULSE 91; TEMP 98.6
[2018-07-14] MEDS: FLUTICASONE PROPIONATE SPR NAS SCH (09:21)
[2018-07-14] MEDS: [UNRECOGNIZED DRUG - OTHER] PO SCH (09:21)
[2018-07-14] MEDS: ETHINYL ESTRADIOL PO SCH (09:21)
[2018-07-14] MEDS: NORETHINDRONE PO SCH (09:21)
[2018-07-14] MEDS: NICOTINE 21 MG PATCH TD PRN (09:32)
[2018-07-14] MEDS: ONDANSETRON 4 MG ODT BU PRN (09:32)
[2018-07-14] MEDS ORDERED: PNEUMOCOCCAL VACCINE 0.5 ML SOL IM ONE (10:00)
== END 2018-07-14 11:00 | disposition short-term general hospital (02) | DRG 897 ==
LOC: ACUTE CARE 15:20 → UNDOADMIN 15:57
PROVIDERS: ADMIT Family Medicine; ATTEND Family Medicine
DX: F10.29 Alcohol dependence with unspecified alcohol-induced disorder (principal); S82.831D Other fracture of upper and lower end of right fibula, subsequent encounter for closed fracture with routine healing; E87.6 Hypokalemia; R94.6 Abnormal results of thyroid function studies
CPT/HCPCS: 36415; 73610; 80048; 80076; 80305; 80307; 82140; 83735; 84132; 84443; 85007; 85025; 85027; 90732; J2405; J7613; A9270-GY; G0008

== ENCOUNTER 2018-08-16 14:57 | Outpatient (CLI) | payer MEDICAID | END 2018-08-16 14:58 | disposition home or self-care (01) | DRG 561 | LOC: CONVCARE 14:57 | PROVIDERS: ATTEND Orthopaedic Surgery | DX: S82.891D Other fracture of right lower leg, subsequent encounter for closed fracture with routine healing (principal) | CPT/HCPCS: 73610 ==